=== PATIENT | male | born 1960 | race Caucasian/White ===

== ENCOUNTER → 2024-10-09 | Outpatient (CLI) | payer BC ==
[2024-10-09 15:25] LABS: Basophils # (A) 0.07 X 10*3/uL (0.00-0.10); Basophils % (A) 1.2 %; Eosinophils # (A) 0.16 X 10*3/uL (0.04-0.35); Eosinophils % (A) 2.8 %; HCT 45.9 % (39.6-50.0); HGB 15.6 g/dL (13.0-17.0); Lymphocytes # (A) 1.88 X 10*3/uL (0.90-5.00); Lymphocytes % (A) 32.6 %; MCH 31.2 pg (27.0-32.0); MCV 91.8 FL (80.0-97.0); Mean Platelet Volume 10.8 FL (9.5-12.2); Monocytes # (A) 0.66 X 10*3/uL (0.20-1.00); Monocytes % (A) 11.4 %; NRBC Per 100 WBC 0 X 10*3/uL (0.00-0.01); Neutrophils # (A) 2.99 X 10*3/uL (1.80-7.70); Neutrophils % (A) 51.8 %; Platelet Count 184 X 10*3/uL (140-440); WBC 5.77 X 10*3/uL (4.50-10.00)
[2024-10-09 15:33] LABS: Appearance,Urine Clear (Clear); Bilirubin,Urine Negative (Negative); Blood,Urine Negative (Negative); Color,Urine Yellow (Yellow); Ketones,Urine Negative (Negative); Nitrite,Urine Negative (Negative); Urobilinogen,Urine 0.2 E.U./DL
[2024-10-09 15:36] LABS: Blood Urea Nitrogen 13.5 mg/dL (9.0-27.0)
== END | disposition home or self-care (01) ==
LOC: LABPAT 09:57
PROVIDERS: ATTEND Urology
DX: Z01.812 Encounter for preprocedural laboratory examination (principal); N20.0 Calculus of kidney
CPT/HCPCS: 81003; 82565; 84520; 85025; 87086

== ENCOUNTER 2024-10-13 06:03 | Day surgery (SDC) | payer BC ==
[2024-10-13 06:47] VITALS: TEMP 97.3
[2024-10-13] MEDS: IV FLUID CONTINUATION 1,000 ML IV ONE (06:51)
[2024-10-13] MEDS: LACTATED RINGERS 1,000 ML IV SCH (06:52)
[2024-10-13] MEDS ORDERED: fentaNYL (PF) 50 MCG/ML 2 ML AMP ONE (07:25)
[2024-10-13] MEDS ORDERED: PROPOFOL 10 MG/ML 20 ML VIAL IV ONE (07:25)
[2024-10-13] MEDS ORDERED: MIDAZOLAM 2 MG/2 ML VIAL ONE (07:25)
[2024-10-13] MEDS ORDERED: LIDOCAINE 2% (PF) 20 MG/ML 5 ML VIAL ONE (07:25)
--- NOTE | 2024-10-13 07:26 | XR ---
EXAMINATION TYPE: XR KUB DATE OF EXAM: 10/13/2024 6:16 AM COMPARISON: None. CLINICAL INDICATION: Male, 64 years old with history of Left Renal Calculus N20.0, TECHNIQUE: XR KUB view(s) obtained. FINDINGS: There is a 0.9 cm calcification in the left renal pelvis region. A smaller renal stone 0.3 cm.. There is a normal colonic bowel gas pattern. Psoas margins are normal. No organomegaly is present. IMPRESSION: 1. Left-sided renal stones. [facility], , 10/13/2024 7:24 AM
--- NOTE | 2024-10-13 07:30 | P.HPIHPCON ---
History of Present Illness H&P Date: 10/13/24 Chief Complaint: Left renal stone This is a 64-year-old male with history of a 0.8 cm left-sided renal pelvic stone, he does have a history of recurrent kidney stones. Option of ESWL versus ureteroscopy with having laser was discussed with him. Risk-benefit and rationale of each approach were discussed. He agreed to proceed with left-sided ESWL, aware of the risk which include but not limited to bleeding, infection, potential of not fragmentation of the stone Consent for Procedure: I have explained the operation/procedure to the patient, including the risks, benefits, side effects, alternative therapies (including not receiving the proposed treatment or service), the likelihood of the patient achieving his/her goals, and potential recuperation problems for the procedure/sedation/analgesia, as well as any blood products, if indicated. I also explained to the patient the risks, benefits and side effects of the alternatives, as well as the risks related to not receiving the proposed procedure, care, treatment, or services. Past Medical History Past Medical History: Hyperlipidemia, Hypertension Additional Past Medical History / Comment(s): kidney stones History of Any Multi-Drug Resistant Organisms: None Reported Past Surgical History: Back Surgery, Coronary Bypass/CABG, Orthopedic Surgery Additional Past Surgical History / Comment(s): 5 vessel CABG approx 18 months ago; previous lithotripsy approx 5 yrs ago; right ankle surg with plate Past Anesthesia/Blood Transfusion Reactions: Postoperative Nausea & Vomiting (PONV) Smoking Status: Never smoker Medications and Allergies Home Medications Medication Instructions Recorded Confirmed Type Aspirin [Adult Low Dose Aspirin EC] 81 mg PO DAILY 10/09/24 10/09/24 History Clopidogrel [Plavix] 75 mg PO DAILY 10/09/24 10/09/24 History Metoprolol Tartrate [Lopressor] 50 mg PO BID 10/09/24 10/09/24 History Rosuvastatin Calcium [Crestor] 40 mg PO HS 10/09/24 10/09/24 History amLODIPine [Norvasc] 2.5 mg PO DAILY 10/09/24 10/09/24 History Allergies Allergy/AdvReac Type Severity Reaction Status Date / Time No Known Allergies Allergy Verified 10/13/24 06:39 Surgical - Exam Vital Signs Temp Pulse Resp BP Pulse Ox 97.3 F L 61 16 128/74 98 10/13/24 06:46 10/13/24 06:46 10/13/24 06:46 10/13/24 06:46 10/13/24 06:46 - General no distress, moderate pain - Eyes normal ocular movement, no pale - ENT normal nares, normal mucosa - Respiratory normal expansion, normal respiratory effort - Abdomen Abdomen: soft, non tender - Psychiatric oriented to time, oriented to person, oriented to place Assessment and Plan Assessment: OR for left ESWL
--- NOTE | 2024-10-13 08:01 | P.OP ---
Date of Procedure: 10/13/24 Preoperative Diagnosis: left renal stone Postoperative Diagnosis: same Procedure(s) Performed: Left ESWL Implants: none Anesthesia: JAYLEN Surgeon: Armen Torres Estimated Blood Loss (ml): 0 Pathology: none sent Condition: stable Disposition: PACU Indications for Procedure: This is a 64-year-old male with history of a 0.8 cm left-sided renal pelvic stone, he does have a history of recurrent kidney stones. Option of ESWL versus ureteroscopy with having laser was discussed with him. Risk-benefit and rationale of each approach were discussed. He agreed to proceed with left-sided ESWL, aware of the risk which include but not limited to bleeding, infection, potential of not fragmentation of the stone Description of Procedure: The patient was taken to the operating room and placed on the Dornier Compact Delta II lithotripter in the supine position. The calculus was seen on biplanar fluoroscopy. Once the patient was properly positioned and sedated, lithotripsy was performed. The energy level was gradually increased per protocol, to an energy level of 4. After 200 shocks were administered, a 1 minute pause was instituted per protocol. A total of 2500 shocks were given at a rate of 80 shocks per minute. Fluoroscopy was utilized at a minimum to ensure proper positioning and determine the treatment status. The appearance of the calculus appeared to change, suggesting fragmentation had occurred. The patient tolerated the procedure well was taken to the recovery room in stable condition. Instructions were given to strain the urine, and the patient will follow-up within one week.
[2024-10-13 08:24] VITALS: BP 125/82; PULSE 60; RESP 14
== END 2024-10-13 08:38 | disposition home or self-care (01) ==
LOC: ORWHC2ENDO 06:03
PROVIDERS: ATTEND Urology
DX: N20.0 Calculus of kidney (principal); I10 Essential (primary) hypertension; I25.10 Atherosclerotic heart disease of native coronary artery without angina pectoris; Z95.1 Presence of aortocoronary bypass graft; E78.5 Hyperlipidemia, unspecified; Z91.89 Other specified personal risk factors, not elsewhere classified; Z79.02 Long term (current) use of antithrombotics/antiplatelets; Z79.82 Long term (current) use of aspirin; Z79.899 Other long term (current) drug therapy; Z87.442 Personal history of urinary calculi
CPT/HCPCS: 74018; 50590; J2250; J3010; J2704; J2003

== ENCOUNTER → 2024-10-20 | Outpatient (CLI) | payer BC ==
--- NOTE | 2024-10-20 23:23 | XR ---
EXAMINATION TYPE: XR KUB DATE OF EXAM: 10/20/2024 11:18 AM COMPARISON: 10/13/2024 CLINICAL INDICATION: Male, 64 years old with history of N20.0 CALCULUS OF KIDNEY, TECHNIQUE: XR KUB view(s) obtained. FINDINGS: There is a normal bowel gas pattern. Psoas margins are normal. No organomegaly is present. There are several small calcifications within the left kidney region. The largest measures 0.6 cm. IMPRESSION: 1. Several small calcifications within the left renal region, the largest currently measuring 0.6 cm. [facility], , 10/20/2024 11:20 PM
== END | disposition home or self-care (01) ==
LOC: RADXRMAIN 11:07
PROVIDERS: ATTEND Urology
DX: N20.0 Calculus of kidney (principal); N28.89 Other specified disorders of kidney and ureter
CPT/HCPCS: 74018